=== PATIENT | female | born 1950 | race Caucasian/White ===

== ENCOUNTER 2024-11-11 09:19 | Emergency (ER) | payer MEDICARE, OTHER, SELFPAY ==
[2024-11-11 09:24] VITALS: BP 116/53
[2024-11-11 09:34] VITALS: BMI 25.9
--- NOTE | 2024-11-11 10:00 | ED.GENMED ---
History of Present Illness
General
Chief Complaint: Skin Surface Trauma
Source: patient, family and ambulance crew
Exam Limitations: none
Time Seen by Provider: 11/11/24 09:20
Nursing documentation reviewed up to this point in time: agreed with
History of Present Illness
History of Present Illness:
74-year-old female currently on hospice for ovarian slipped and fell hitting her left forehead and the back just prior to arrival. She sustained a laceration to left side of her forehead. She did not lose consciousness and is not on any blood
thinners. She otherwise claims to feel well other than some discomfort to her forehead at the moment. Denies any numbness weakness neck pain. Patient claims she is not seeking any additional treatment other than repair of her laceration. This
was also discussed with the family and the hospice care provider
Review of Systems
Review of Systems
Allergies reviewed?: Yes
All Other Systems: ROS reviewed and negative except as documented in HPI and ROS
Phy Exam
Physical Exam
Physical Exam:
GENERAL: Alert , in no apparent distress
EYE: pupils equal and reactive
NECK: Supple, no significant adenopathy.
ENT: o/p clr, mmm.
CARDIAC: Regular rate and rhythm .
LUNGS: Clear breath sounds bilaterally, no acute respiratory distress, no wheezes/rales/rhonchi
ABDOMEN: Soft, without focal tenderness, no r/g, no cvat
NEUROLOGICAL: Alert and oriented, no focal neuro deficits
SKIN: 4 cm laceration to the left forehead subcutaneous in depth. No foreign body seen. Warm and dry, skin intact.
MUSCULOSKELETAL: No edema, well perfused.
PSYCH: Normal and appropriate interaction.
Course
Vital Signs
Initial and Last Documented VS:
Initial Vital Signs
Temp Pulse Resp BP Pulse Ox
98.1 F 96 18 116/53 100
11/11/24 09:24 11/11/24 09:24 11/11/24 09:24 11/11/24 09:24 11/11/24 09:24
Last Documented Vital Signs
Temp Pulse Resp BP Pulse Ox
98.1 F 96 18 116/53 100
11/11/24 09:24 11/11/24 09:24 11/11/24 09:24 11/11/24 09:24 11/11/24 09:24
Procedures
Laceration Closure
Left Forehead:
Status of Wound: clean
Size of Wound in cm: 4
Description of Wound Edges: sharp
Preparation: cleaned with saline
Anesthesia: 1% Lidocaine with epi
Revision/Debridement: routine- no revision
Wound exploration: explored to base- no FB and no tendon involvement
Type of Closure: single layer closure
Skin Closure Material: 4-0 nylon
Number of sutures: 5
MDM/Problems Addressed
MDM/Problems Addressed:
74-year-old female presenting to the emergency department today with concerns of a laceration to the left forehead after mechanical fall prior to arrival. She denies any additional concerns. Patient is currently on hospice and is specifically
seeking laceration closure but would not like any additional laboratory testing. This was the recommendation from the patient's hospice provider as well. Here the patient's laceration was cleaned thoroughly and closed with 5 stitches. Stable for
outpatient management return precautions given. Suture removal in 7 to 10 days.
*Critical Care Note
Total Time (30-74mins, 75-104mins- exclusive of procedures): Not Applicable
ED Attending Note
-
Portions of this chart may have been created with voice recognition software.� Occasional wrong word or��sound alike� substitutions may have occurred due to the inherent limitations of voice recognition software.
Discharge Plan
Departure
Patient Disposition: Home (Routine Discharge)
Date of Disposition: 11/11/24
Time of Disposition: 10:00
Patient with high blood pressure during this ER visit?: No
Condition: Good
Covid-19: Not Applicable
Discharge Problem:
Forehead laceration, Fall
Instructions: Laceration Repair With Stitches (DC)
Activity Restrictions/Additional Instructions:
You came to the emergency department today with concerns of a laceration to your left side of your forehead. This was cleaned thoroughly and closed with 5 stitches. Please have these removed in 7 to 10 days. Return to the emergency department for
any worsening, new or concerning symptoms.
Interventions
Interventions:
*Risk Screen - Suicide Last Done: 11/11/24 09:39
*General Assessment Last Done: 11/11/24 09:34
*Neglect/Abuse Screening Last Done: 11/11/24 09:39
ED- Fall Risk Assessment Last Done: 11/11/24 09:34
*ED COVID-19 Vaccine History Last Done: 11/11/24 09:34
ED-Skin Assessment Last Done: 11/11/24 09:34
Discharge Date and Time
Print Language: ANDORRAN
[2024-11-11 11:00] VITALS: BP 114/70
--- NOTE | 2024-11-11 11:00 | EDRN ---
Discharge instructions reviewed with patient's daughter. Verbalized understanding.
--- NOTE | 2024-11-11 12:35 | EDRN ---
Report given to [facility].
[2024-11-11 12:50] VITALS: BP 114/70
== END 2024-11-11 12:40 | disposition home or self-care (01) ==
LOC: EMR 09:19
PROVIDERS: EMERGENCY PHYSICIAN Emergency Medicine; FAMILY PHYSICIAN Nurse Practitioner Family
DX: S01.81XA Laceration without foreign body of other part of head, initial encounter (principal); W01.0XXA Fall on same level from slipping, tripping and stumbling without subsequent striking against object, initial encounter; Z51.5 Encounter for palliative care
CPT/HCPCS: 99282; 12002